=== PATIENT | female | born 1970 | race Caucasian/White ===

== ENCOUNTER 2020-02-13 17:48 | Emergency (ER) | payer OTHER ==
[2020-02-13 17:53] VITALS: PULSE 85; TEMP 98.7; BMI 28.5
--- NOTE | 2020-02-13 19:07 | PDOC ---
History of Present Illness - General Chief Complaint: Chest Pain Stated Complaint: PAIN Time Seen by Provider: 02/13/20 19:07 - History of Present Illness Initial Comments: HPI Pt is a 49yo F with PMH anxiety, +Covid in September who presents with chest tightness. Reports 2 week history of right arm pain radiating to R neck and jaw that preceded onset of chest pain. Believes this pain was triggered by using a dumbbell/with exercise. Describes CP as substernal chest tightness, intermittent, lasting for minutes, 6/10, nonpleuritic, nonexertional, nonradiating. States that CP began at 10am this morning. Reports associated fast heart rate. Denies f/c, SOB, abdominal pain, peripheral edema. Denies FHx of VT. PCP: Loyd PMH: anxiety Meds: buspirone Allergies: NKDA Social: denies ELMO Review of Systems CONSTITUTIONAL:denies fever, chills, diaphoresis, generalized weakness, malaise, loss of appetite HEENT:denies rhinorrhea, nasal congestion, sore throat, visual changes CARDIOVASCULAR:reports chest pain, syncope, palpitations, irregular heart rate, lightheadedness, peripheral edema RESPIRATORY:denies cough, shortness of breath, wheezing, hemoptysis GASTROINTESTINAL: denies abdominal pain, nausea, vomiting, diarrhea, constipation, melena, hematochezia GENITOURINARY:denies dysuria, frequency, urgency, hematuria, flank pain MUSCULOSKELETAL:reports R neck pain HEMATOLOGIC/IMMUNOLOGIC:denies easy bleeding, easy bruising ENDOCRINE: denies unexplained weight gain, unexplained weight loss NEUROLOGIC:denies headache, loss of consciousness, focal weakness or parest hesias, dizziness, mental status changes, bladder or bowel incontinence SKIN:denies rash, itching, pallor PSYCHIATRIC:reports anxiety Physical Exam General: awake, alert, fully oriented, in no acute distress, well developed, well nourished Head: normocephalic, atraumatic Eyes: PERRL, EOMI, anicteric sclera, conjunctiva clear ENT: hearing grossly normal, nares patent, oropharynx clear without exudates, no nasal congestion, moist mucous membranes Neck: supple, normal ROM, no LAD, JVD or masses Lung: equal breath sounds b/l, CTA b/l, no crackles, wheezes; no distress, speaks full sentences Heart: RRR, normal S1, S2, no murmurs appreciated, no TTP of chest wall Abdomen: soft, non tender, normoactive bowel sounds, no guarding, rebound, masses Extremities: normal ROM, pain with forward flexion, no edema, no erythema or tenderness, radial/DP/PT pulses 2+ and symmetric Neuro: CN2-12 grossly intact, moves all extremities, normal speech, sensation intact Skin: warm, dry, no rashes or lesions noted MDM Pt is a 49yo F with PMH anxiety, +Covid in September who presents with chest tightness. Vitals: afebrile, normotensive, HR and RR WNL DDx including but not limited to: ACS, PE, musculoskeletal injury, anxiety Workup: labs, cxr, ekg Scores - HEART score - 2 - PERC negative EKG: normal sinus rhythm, incomplete RBBB, HR 86bpm, NJ 150ms, QRS 106ms, QTc 478ms CXR - no pneumothorax or pleural effusion. midline airway, appropriate vascular markings, no blunting of costophrenic angle, no cardiomegaly, as read by ED staff Labs: leukopenia, no anemia, slight hypokalemia, troponin WNL - as per attending, will replete with 40 meq K States that chest pain has since resolved. Re-assessment: Patient stable for discharge. Pain controlled. Informed of all lab and imaging results. Given follow up instructions and strict return precautions. Patient expressed understanding and agree to plan Disposition: Discharge Past History - Medical History Allergies/Adverse Reactions: Allergies Allergy/AdvReac Type Severity Reaction Status Date / Time No Known Allergies Allergy Verified 02/13/20 17:53 Home Medications: Ambulatory Orders Tobramycin 0.3% Ophth Soln [Tobrex Ophthalmic Solution -] 1 drop OU Q4HWA #1 bottle 12/15/17 COPD: No - Reproductive History Is Patient Now?: No - Psycho-Social/Smoking History Smoking History: Never smoked Have you smoked in the past 12 months: No Information on smoking cessation initiated: No - Substance Abuse Hx (Audit-C & DAST Scrn) How often the patient has a drink containing alcohol: Never Score: In Men: 4 or > Positive; In Women: 3 or > Positive: 0 Screen Result (Pos requires Nsg. Audit-10AR): Negative In the last yr the pt used illegal drug/Rx for NonMed reason: No Score: Yes response is considered Positive: 0 Screen Result (Positive result requires Nsg. DAST-10): Negative *Physical Exam - Vital Signs Last Vital Signs Temp Pulse Resp BP Pulse Ox 98.7 F 85 18 129/40 L 100 02/13/20 17:49 02/13/20 17:49 02/13/20 17:49 02/13/20 17:49 02/13/20 17:49 Heart Score/ECG Review - History History: Slightly suspicious - Electrocardiogram EKG: Non specific repolarization disturbance - Age Age: 45-65 - Risk Factors Based on the list above the patient has:: No risk factors known - Troponin Troponin: </= normal limit - Score Heart Score - Total: 2 ED Treatment Course - LABORATORY CBC & Chemistry Diagram: 02/13/20 20:22 02/13/20 20:22 Discharge - Discharge Information Problems reviewed: Yes Clinical Impression/Diagnosis: Chest pain Qualifiers: Chest pain type: unspecified Qualified Code(s): R07.9 - Chest pain, unspecified Condition: Stable Disposition: HOME - Follow up/Referral Referrals: ON STAFF,NOT [Primary Care Provider] - Tiburcio Saunders MD [Staff Physician] - - Patient Discharge Instructions Patient Printed Discharge Instructions: DI for Atypical Chest Pain Additional Instructions: You came into the ER chest tightness. In the ED, you were evaluated with blood work and chest xray. Your blood work indicated that you have low white blood cell count (which you mentioned that you had in the past). Your potassium level was slightly low, we gave you a tablet of potassium in the ED. Your chest xray was also normal. You do not appear to be an acute need for immediate hospitalization. You were advised to follow up with your primary care doctor within 1 week. You were given a referral to Dr. Saunders (psychiatry). Call tomorrow to schedule appointment, Come back to the ER immediately with any new or worsening concerns, such as increased chest pain or pain that spreads to your arm, neck, jaw, back, or abdomen, shortness of breath, an increasing cough or coughing up blood, severe back or abdominal pain, feel nauseous or vomit, or high fever. Thank you for coming to the [facility] ER. We hope you feel better soon! - Post Discharge Activity Vital Signs - Vital Signs Blood Pressure: 129/68 BP Location: Left Arm
[2020-02-13 21:01] LABS: BASO % 0.8 % (0-2.0); EOS % 1.3 % (0-4.5); HEMATOCRIT 39.7 % (32.4-45.2); HEMOGLOBIN 13.7 GM/dL (10.7-15.3); LYMPH % 36.5 % (8-40); MCH 30.2 pg (25.7-33.7); MCHC 34.4 g/dl (32.0-36.0); MEAN CELL VOLUME 87.7 fl (80-96); MEAN PLT VOLUME 9.7 fl (7.5-11.1); MONO % 8.3 % (3.8-10.2); NEUT % 53.1 % (42.8-82.8); PLATELET COUNT 175 K/MM3 (134-434); RBC 4.52 M/mm3 (3.60-5.2); RDW 14.4 % (11.6-15.6); WHITE BLOOD COUNT 3.4 K/mm3 (4.0-10.0)
[2020-02-13 21:27] LABS: ALK PHOS 94 U/L (45-117); ANION GAP 8 MMOL/L (8-16); BILIRUBIN,TOTAL 1.1 mg/dL (0.2-1); BLOOD UREA NITROGEN 8.4 mg/dL (7-18); CALCIUM 9.4 mg/dL (8.5-10.1); CHLORIDE 108 mmol/L (98-107); CO2 27 mmol/L (21-32); CREATININE 0.8 mg/dL (0.55-1.3); GLUCOSE,RANDOM 84 mg/dL (74-106); POTASSIUM 3.4 mmol/L (3.5-5.1); SGOT/AST 22 U/L (15-37); SGPT/ALT 23 U/L (13-61); SODIUM 143 mmol/L (136-145); TOT PROT 7.5 g/dl (6.4-8.2)
[2020-02-13] MEDS ORDERED: POTASSIUM CHLORIDE TABS 20 MEQ TABLET.ER (FP) PO ONE ×2 (22:00→22:08)
[2020-02-13 22:07] VITALS: BP 129/68
--- NOTE | 2020-02-14 12:45 | EKG ---
Test Reason : Blood Pressure : / mmHG Vent. Rate : 086 BPM Atrial Rate : 086 BPM P-R Int : 150 ms QRS Dur : 106 ms QT Int : 400 ms P-R-T Axes : 064 068 060 degrees QTc Int : 478 ms NORMAL SINUS RHYTHM INCOMPLETE RIGHT BUNDLE BRANCH BLOCK CANNOT RULE OUT ANTERIOR INFARCT , AGE UNDETERMINED ABNORMAL ECG WHEN COMPARED WITH ECG OF 16-JAN-2011 23:00, NO SIGNIFICANT CHANGE WAS FOUND Confirmed by Phil Mcclain ([id number]) on 02/14/2020 12:45:03 PM Referred By: Confirmed By:Phil Mcclain
--- NOTE | 2020-03-05 06:36 | PDOC ---
Documentation entered by Cameron Quiñones SCRIBE, acting as scribe for Gloria Tovar MD. Gloria Tovar MD: This documentation has been prepared by the Ishmael novak Angel, SCRIBE, under my direction and personally reviewed by me in its entirety. I confirm that the documentation accurately reflects all work, treatment, procedures, and medical decision making performed by me. Attending Attestation - Resident Resident Name: Renetta Warren - ED Attending Attestation I have performed the following: I have examined & evaluated the patient, The case was reviewed & discussed with the resident, I agree w/resident's findings & plan - HPI HPI: 02/13/20 22:16 The patient is a 49 year old female with a significant past medical history of anxiety (since 2016 after divorce) who presents to the ED accompanied by dimitri chavarria with right arm pain for 2 weeks. The patient states she has been working out using a kettlebell and may have strained herself. The patient also notes tito COVID-19 back September which has made her very anxious to go back to work because that is where she contracted it. The patient states as of lately she has been very stressed and anxious after being notified her daughter recently contracted COVID-19. The patient denies fever/chills, SOB, chest pain or cough. Social History: Non Smoker, no alcohol or drug abuse. Family history: Mother has diabetes and HTN. - Physicial Exam PE: 02/13/20 22:16 GENERAL: Awake, alert, and fully oriented, in no acute distress HEAD: No signs of trauma EYES: PERRLA, EOMI, sclera anicteric, conjunctiva clear ENT: Auricles normal inspection, hearing grossly normal, nares patent, oropharynx clear without exudates. Moist mucosa NECK: Normal ROM, supple, no lymphadenopathy, JVD, or masses LUNGS: Breath sounds equal, clear to auscultation bilaterally. No wheezes, and no crackles HEART: Regular rate and rhythm, normal S1 and S2, no murmurs, rubs or gallops ABDOMEN: Soft, nontender, normoactive bowel sounds. No guarding, no rebound. No masses EXTREMITIES: Normal range of motion, no edema. No clubbing or cyanosis. No cords, erythema, or tenderness NEUROLOGICAL: Cranial nerves II through XII grossly intact. Normal speech, normal gait SKIN: Warm, Dry, normal turgor, no rashes or lesions noted. - Medical Decision Making 02/13/20 21:21 Pt has a normal CXR Normal vitals Normal EKG Discharge - Discharge Information Problems reviewed: Yes Clinical Impression/Diagnosis: Chest pain Qualifiers: Chest pain type: unspecified Qualified Code(s): R07.9 - Chest pain, unspecified Condition: Stable Disposition: HOME - Follow up/Referral Referrals: Tiburcio Saunders MD [Staff Physician] - ON STAFF,NOT [Primary Care Provider] - - Patient Discharge Instructions Patient Printed Discharge Instructions: DI for Atypical Chest Pain Additional Instructions: You came into the ER chest tightness. In the ED, you were evaluated with blood work and chest xray. Your blood work indicated that you have low white blood cell count (which you mentioned that you had in the past). Your potassium level was slightly low, we gave you a tablet of potassium in the ED. Your chest xray was also normal. You do not appear to be an acute need for immediate hospitalization. You were advised to follow up with your primary care doctor within 1 week. You were given a referral to Dr. Saunders (psychiatry). Call tomorrow to schedule appointment, Come back to the ER immediately with any new or worsening concerns, such as increased chest pain or pain that spreads to your arm, neck, jaw, back, or abdomen, shortness of breath, an increasing cough or coughing up blood, severe back or abdominal pain, feel nauseous or vomit, or high fever. Thank you for coming to the [facility] ER. We hope you feel better soon! - Post Discharge Activity
== END 2020-02-13 22:25 | disposition home or self-care (01) ==
LOC: JER 17:48
DX: R07.9 Chest pain, unspecified (principal)
CPT/HCPCS: 36415; 71045-TC-FY; 80053; 84484; 85025; 93005; 93010; 99285-25